=== PATIENT | male | born 1985 | race Caucasian/White ===

== ENCOUNTER 2017-02-16 12:47 | Outpatient (CLI) | payer OTHER ==
--- NOTE | 2017-02-16 17:10 | MRI Report ---
EXAM: MRI LUMBAR SPINE WITHOUT CONTRAST EXAM DATE: 02/16/2017 01:19 PM. CLINICAL HISTORY: Low back pain with radicular findings. COMPARISON: None. TECHNIQUE: Multiplanar, multisequence T1-weighted and fluid-sensitive sequences of the lumbar spine f rom T12 to S1 without contrast. Other: None. FINDINGS: Spinal Cord: The conus terminates at T12-L1. No signal abnormality in the visualized spinal cord. Alignment: Normal. No scoliosis or spondylolisthesis. Bone Marrow: Five azp-gar-otejrrg lumbar vertebral bodies are assumed. No gross fractures or bone les ions. No bone marrow edema. Disk Levels/Facets: L5-S1: Mild to moderate disk space narrowing. Minimal disk bulge. Minimal foraminal narrowing. L4-L5: Mild to moderate disk space narrowing. Ycrkb-nj-hnuuxjzo sized posterior central disk extrusio n which measures approximately 1.7 cm craniocaudal by 0.8 cm AP by 2.2 cm medial to lateral. The disk extrusion causes moderate canal, severe left subarticular zone, and moderate to severe right subarti cular zone stenoses. No foraminal stenoses. L3-L4: Mild disk space narrowing. Small posterior central disk protrusion with annular fissure. Mild canal stenosis. No foraminal stenoses. L2-L3: Minimal disk bulge with posterior annular fissure. Minimal canal and foraminal narrowing. L1-L2 and T12-L1: Unremarkable. Musculature: Normal. No edema or fatty atrophy. Other: The visualized pelvic cavity is unremarkable. IMPRESSION: 1. Multilevel degenerative disk changes which is most significant at L4-L5. 2. Pfady-bl-evxdumyw sized posterior central disk extrusion at L4-L5 which causes moderate canal, sev ere left subarticular zone, and moderate to severe right subarticular zone stenoses. 3. Small posterior central disk protrusion at L3-L4. Mild canal stenosis. Comment: The following findings are so common in adults without low back pain that while we report th eir presence, they must be interpreted with caution and in the context of the clinical situation. (Re lola Stewart et al, Spine 2001) Prevalence of findings in patients without low back pain: Disk degeneration (any evidence): 92% Disk desiccation/T2 signal loss: 83% Disk height loss: 56% Disk bulge: 64% Disk protrusion: 32% Annular tear/high intensity zone: 38% [facility] Referring Provider Line: [phone] SITE ID: [id number]
== END 2017-02-16 12:48 | disposition home or self-care (01) ==
LOC: DI 12:47
PROVIDERS: ATTEND Orthopaedic Surgery
DX: M51.26 Other intervertebral disc displacement, lumbar region (principal); M51.36 Other intervertebral disc degeneration, lumbar region
CPT/HCPCS: 72148